=== PATIENT | female | born 1945 | race Caucasian/White ===

== ENCOUNTER 2021-03-20 13:23 | Outpatient (REF) | payer MEDICARE, SELFPAY ==
--- NOTE | ~2021-03-20 | MM_ITS ---
EXAMINATION: MM SCREENING DIGITAL BREAST TOMOSYNTHESIS, BILATERAL CLINICAL INFORMATION: Screening. Asymptomatic. The lifetime risk of breast cancer based on the Tyrer-Cuzick Model is 2.2%. COMPARISON: Mammography: March 15, 2019 and studies dating back to December 04, 2013 TECHNIQUE: Digital breast tomosynthesis is performed in both the craniocaudal and mediolateral oblique views along with computer-aided detection (CAD). Synthesized 2D images are generated from the tomosynthesis. FINDINGS: There are scattered areas of fibroglandular density (ACR BI-RADS breast composition Category b). There are no significant masses, abnormal calcifications, or other abnormalities. MM/MM tomosynthesis screening BI IMPRESSION: There are no significant changes from prior study. ASSESSMENT: BI-RADS 1: Negative RECOMMENDATION: Routine annual mammography screening. This patient's information was entered into a reminder system with a target due date for their next mammogram.
== END 2021-03-20 13:24 | disposition home or self-care (01) ==
LOC: HO.MAMMO 13:23
PROVIDERS: PCP Internal Medicine; Visit Provider Internal Medicine
DX: Z12.31 Encounter for screening mammogram for malignant neoplasm of breast (principal)
CPT/HCPCS: 77063; 77067

== ENCOUNTER 2021-04-17 18:43 | Outpatient (REF) | payer MEDICARE, SELFPAY ==
--- NOTE | ~2021-04-17 | MR_ITS ---
EXAMINATION: MR KNEE WITHOUT CONTRAST, LEFT CLINICAL INFORMATION: Left knee pain. Rule out torn meniscus. COMPARISON: Radiograph dated 10/18/2019 TECHNIQUE: MRI of the knee without contrast was performed using routine sequences on a high-field scanner. FINDINGS: MENISCI: Medial Meniscus: Intact Lateral Meniscus: There is subtle meniscal fraying at the posterior horn of the lateral meniscus and at the free edge of the meniscal body. LIGAMENTS: Cruciate: Intact Collateral: Intact EXTENSOR MECHANISM: Intact ARTICULAR CARTILAGE/BONE: Patellofemoral Compartment: There is moderate nonuniform chondral thinning at the patella and more [id number] nonuniform chondral thinning in the central trochlea. A 1 x 1 cm area of more focal high-grade cartilage loss is present at the inferior aspect of the medial trochlear facet with underlying articular cortical irregularity. Medial Compartment: Mild nonuniform chondral thinning and surface irregularity at the medial femoral condyle posteriorly. Tiny marginal osteophytes. Lateral Compartment: Mild to moderate nonuniform chondral thinning is present at the medial half of the lateral tibial plateau, more pronounced posteriorly. More mild chondral thinning at the lateral femoral condyle. JOINT FLUID AND BURSAE: Trace joint effusion. No Bell's cyst. MR/MR knee LT wo con IMPRESSION: 1. [id number] patellofemoral compartment osteoarthritis. Mild osteophytes in the medial and lateral compartments. 2. Subtle free edge fraying at the lateral meniscus. No discrete meniscal tears. 3. Trace joint effusion.
== END 2021-04-17 18:44 | disposition home or self-care (01) ==
LOC: HO.MRI 18:43
PROVIDERS: PCP Internal Medicine; Visit Provider Internal Medicine
DX: M25.562 Pain in left knee (principal)
CPT/HCPCS: 73721

== ENCOUNTER 2021-04-29 08:59 | Outpatient (REF) | payer MEDICARE, SELFPAY ==
--- NOTE | ~2021-04-29 | XR_ITS ---
EXAMINATION: XR BOTH KNEES AP STANDING XR LEFT KNEE, 2 VIEWS CLINICAL INFORMATION: Pain. COMPARISON: Left knee MRI dated 04/17/2021 and left knee radiographs dated 10/18/2019 TECHNIQUE: Standing AP view of both knees and lateral and sunrise views of the left knee. FINDINGS: Right Knee: Mild medial compartment joint space narrowing. No osseous erosion. No abnormal soft tissue calcification. No fracture or dislocation. Left Knee: Mild medial compartment joint space narrowing. Tiny medial and patellofemoral compartment marginal osteophytes. No osseous erosion. No fracture or dislocation. No significant joint effusion. No abnormal soft tissue calcification. XR/XR knee LT 2V IMPRESSION: Right Knee: Minimal medial compartment arthrosis. Left Knee: Mild medial and patellofemoral compartment arthrosis, unchanged.
--- NOTE | ~2021-04-29 | XR_ITS ---
EXAMINATION: XR BOTH KNEES AP STANDING XR LEFT KNEE, 2 VIEWS CLINICAL INFORMATION: Pain. COMPARISON: Left knee MRI dated 04/17/2021 and left knee radiographs dated 10/18/2019 TECHNIQUE: Standing AP view of both knees and lateral and sunrise views of the left knee. FINDINGS: Right Knee: Mild medial compartment joint space narrowing. No osseous erosion. No abnormal soft tissue calcification. No fracture or dislocation. Left Knee: Mild medial compartment joint space narrowing. Tiny medial and patellofemoral compartment marginal osteophytes. No osseous erosion. No fracture or dislocation. No significant joint effusion. No abnormal soft tissue calcification. XR/XR knee standing BI IMPRESSION: Right Knee: Minimal medial compartment arthrosis. Left Knee: Mild medial and patellofemoral compartment arthrosis, unchanged.
== END 2021-04-29 09:00 | disposition home or self-care (01) ==
LOC: HO.HOSX 08:59
PROVIDERS: Visit Provider Orthopaedic Surgery
DX: Z13.89 Encounter for screening for other disorder (principal)
CPT/HCPCS: 73560; 73565; 99202

== ENCOUNTER 2021-04-29 13:45 | Outpatient (REF) | payer MEDICARE, SELFPAY ==
[2021-04-29 14:43] LABS: MANUAL DIFF FLAG NO
[2021-04-29 14:49] LABS: Basophils Percent Auto 0.5 % (0-2); Eosinophils Absolute Auto 0.2 X10*3/uL (0.0-0.4); Glucose Urine UA NEG (NEG); Hematocrit 41.5 % (37-47); Hemoglobin 13.7 g/dl (12.0-16.0); Imm Gran Abs Auto 0.04 X10*3/uL (0.00-0.03); Imm Gran Pct Auto 0.5 % (0.0-0.4); Leukocyte Esterase Urine 1+ (NEG); Lymphocytes Absolute Auto 2.8 X10*3/uL (1.2-4.9); Mean Corpuscular Hemoglobin 32.4 pg (27.0-33.0); Mean Corpuscular Volume 98.1 fL (80-98); Mean Platelet Volume 9.6 fL (9.4-12.3); Monocytes Absolute Auto 0.6 X10*3/uL (0.1-1.2); Monocytes Percent Auto 8.1 % (2-11); Neutrophils Absolute Auto 3.9 X10*3/uL (2.0-8.3); Neutrophils Percent Auto 51.9 % (45-73); Nitrite Urine NEG (NEG); Platelet Count 305 X10*3/uL (160-400); Red Blood Count 4.23 X10*6/uL (4.20-5.50); Red Cell Distribution Width 13.7 % (11.0-16.0); Specific Gravity - Urine <= 1.005 (1.005-1.025); Urine Blood TRACE (NEG); Urine Ketones NEG (NEG); Urine Protein NEG (NEG-TRACE); White Blood Count 7.4 X10*3/uL (4.8-10.8)
[2021-04-29 14:51] LABS: Appearance Urine CLEAR; Color Urine YELLOW
[2021-04-29 14:59] LABS: RBC Urine 0-2 /HPF (0); Renal Epithelial Cells Urine TRACE /LPF; Squamous Epithelial Cell Urine 1+ /LPF; WBC Urine 0-2 /HPF (0-4)
[2021-04-29 15:13] LABS: Alanine Aminotransferase 15 U/L (0-31); Albumin Level 4.3 g/dL (3.5-5.0); Alkaline Phosphatase 79 U/L (39-117); Anion Gap 12 (12-20); Aspartate Amino Transferase 20 U/L (5-31); Bilirubin Total 0.5 mg/dL (0.0-1.0); Blood Urea Nitrogen 12 mg/dL (9-16); Calcium 9.5 mg/dL (8.4-10.2); Carbon Dioxide 27 mmol/L (22-29); Chloride 104 mmol/L (96-108); Cholesterol 209 mg/dL; Estimated Glomerular Filt Rate > 60; Glucose Fasting 103 mg/dL (60-99); HDL Cholesterol 69 mg/dL; LDL Cholesterol Calculated 126 mg/dl; Potassium 4.4 mmol/L (3.3-5.1); Sodium 139 mmol/L (135-145); Total Protein 7.2 g/dL (6.5-8.0); Triglycerides 74 mg/dL
[2021-04-29 15:34] LABS: Vitamin D 25-OH Total 33.2 ng/mL (>30)
== END 2021-04-29 13:46 | disposition home or self-care (01) ==
LOC: HO.LAB 13:45
PROVIDERS: PCP Internal Medicine; Visit Provider Internal Medicine
DX: M25.562 Pain in left knee (principal); M25.561 Pain in right knee; E78.00 Pure hypercholesterolemia, unspecified; J44.9 Chronic obstructive pulmonary disease, unspecified; F17.200 Nicotine dependence, unspecified, uncomplicated; Z86.010 Personal history of colon polyps
CPT/HCPCS: 36415; 73560; 73565; 80053; 80061; 81001; 82306; 85025; 99202

== ENCOUNTER 2021-05-07 12:48 | Day surgery (SDC) | payer MEDICARE, SELFPAY ==
[2021-03-27 09:42] VITALS: BMI 24.3
--- NOTE | 2021-05-06 09:01 | HO.ANESPROP2 ---
HPI - Anesthesia Eval Consult details Narrative: 75yo F for Colonoscopy PMFSH Past Medical History Medical History Back pain COPD (chronic obstructive pulmonary disease) Smoker Surgical History Surgical History H/O colonoscopy Hx of blepharoplasty Hx of tubal ligation Social History Social History (Updated 03/27/21 @ 09:41 by Anita Sanz RN) Patient Tobacco Use Status: Current everyday Tobacco user Tobacco use type: Cigarette Cigarette Packs Per Day: 2 Cigarettes Per Day: 40.0 Use of substances other than those prescribed or required for medical reasons: No Are you DNR?: No Advance Directives: No Advance Directives Information Provided: Yes Meds Allergies Allergy/AdvReac Type Severity Reaction Status Date / Time soap Allergy Mild itching Verified 04/29/21 13:10 odors Allergy Mild cough Uncoded 04/29/21 13:10 Home Medications Medication Instructions Recorded Confirmed Last Taken Type Aleve 03/27/21 03/27/21 Unknown History ibuprofen 03/27/21 Unknown History Exam Exam Date and Time: May 06, 2021 0901 Height,Weight and Vital Signs: Height 5 ft 1.5 in Weight 59.421 kg Pertinent Lab Results Pertinent Lab Results: Laboratory Tests 04/29/21 04/29/21 14:00 14:00 WBC 7.4 Hgb 13.7 Hct 41.5 Plt Count 305 Sodium 139 Potassium 4.4 Chloride 104 Carbon Dioxide 27 BUN 12 Creatinine 0.75 Assessment and Plan Assessment Anesthesia Assessment: Chart Reviewed
[2021-05-07 13:08] VITALS: BP 156/87; PULSE 99; RESP 18; TEMP 36.8; O2SAT 96
[2021-05-07] MEDS: Lactated Ringers 1,000 ML 100 ML IVCONT (13:13)
[2021-05-07] MEDS: Albuterol Sulfate (0.083%) 2.5 MG/3 ML VIAL.NEB INHALE (13:18)
[2021-05-07 13:21] VITALS: PULSE 101; O2SAT 99
--- NOTE | 2021-05-07 13:52 | P.HPSUR_ITS ---
Pre-Procedural Eval Section A Date of Service: 05/07/21 Section B Chief Complaint: Screening Details of Present Illness: screening Relevant Family History (Specify if Yes): No Relevant Social History: Tobacco Use Present Medications: see Short Stay Collaborative assessment Medical History: No relevant PMH History of Previous Operations: No relevant previous surgery Allergies: Allergies Allergy/AdvReac Type Severity Reaction Status Date / Time soap Allergy Mild itching Verified 04/29/21 13:10 odors Allergy Mild cough Uncoded 04/29/21 13:10 Review of Systems Sugical H&P ROS: Negative: Constitution, Cardiovascular, Respiratory, Cynthia rological, Psychiatric, Hem-Onc, Allergic/Immunologic, Gastrointestinal, Genitourinary, Musculoskeletal, Integumentary, Endocrine and Eyes/Ears/Nose/Throat Exam Surgical H&P Exam: Normal: HEENT, Normal: Heart, Normal: Lungs, Normal: Extremities, Normal: Abdomen, Normal: Skin and Normal: Neurological Plan Diagnosis/Plan: Unchanged I have reviewed the history and physical and performed a pertinent physical examination on my patient. No changes have occurred unless specified.
--- NOTE | 2021-05-07 14:28 | P.BOP_ITS ---
Brief Operative Note Date of Service: 05/07/21 Pre-op diagnosis: screening Post-op diagnosis: same (colon polyp) Procedure: colonoscopy Surgeon: Ivan Bowens Anesthesia: MAC Was an Service Trainer used for this Procedure?: No Estimated blood loss (mL): 2 Pathology: other (polyp x 1) Condition: stable Disposition: PACU
[2021-05-07 14:29] VITALS: BP 108/41; PULSE 88; RESP 16; TEMP 36.2; O2SAT 97
--- NOTE | 2021-05-07 14:42 | OP_ITS ---
SURGEON: Ivan Bowens MD INDICATIONS: Colon cancer screening and prior history of adenomatous colon polyps. PREOPERATIVE DIAGNOSIS: POSTOPERATIVE DIAGNOSIS: PROCEDURE PERFORMED: Colonoscopy to the terminal ileum with biopsy. ESTIMATED BLOOD LOSS: COMPLICATIONS: ANESTHESIA: ASSISTANTS: SPECIMENS: MEDICATIONS: Monitored anesthesia care. DESCRIPTION OF PROCEDURE: History and physical performed. The risks and benefits of the procedure were explained to the patient. Informed consent was obtained. The patient was placed in left lateral decubitus position. A digital rectal exam was performed and was found to be normal. The Olympus pediatric video colonoscope was introduced into the rectum and advanced to the cecum without difficulty. The cecum was identified by transillumination, palpation, and identification of ileocecal valve. Examination was performed and the scope was removed. She tolerated the procedure well and was taken to recovery area in stable condition. FINDINGS: The terminal ileum was examined and appeared normal. The visualized colonic mucosa was normal. The quality of the prep was good. A single polyp measuring less than 5 mm was removed from the colon at 20 cm. No other polyps were identified. Retroflexed examination showed internal hemorrhoids. There was mild scattered diverticulosis mainly present in the right colon. IMPRESSION: Diverticulosis, colon polyp. RECOMMENDATION: Follow up the biopsy results. MD DORIAN Sosa/ABHINAVL / [id number]
[2021-05-07 14:45] VITALS: BP 113/54; PULSE 85; RESP 17; TEMP 36.4; O2SAT 99
== END 2021-05-07 15:18 | disposition home or self-care (01) ==
PROVIDERS: PCP Internal Medicine; Visit Provider Internal Medicine Gastroenterology
PROC: 0DJD8ZZ Inspection of Lower Intestinal Tract, Via Natural or Artificial Opening Endoscopic (ICD-10-PCS; CPT 45378; principal; 2021-05-07 13:50)
DX: Z12.11 Encounter for screening for malignant neoplasm of colon (principal); Z86.010 Personal history of colon polyps; K63.5 Polyp of colon; K57.30 Diverticulosis of large intestine without perforation or abscess without bleeding; K64.8 Other hemorrhoids; J44.9 Chronic obstructive pulmonary disease, unspecified; M54.9 Dorsalgia, unspecified; F17.210 Nicotine dependence, cigarettes, uncomplicated; Z79.1 Long term (current) use of non-steroidal anti-inflammatories (NSAID)
CPT/HCPCS: 45380; 88305; 94640

== ENCOUNTER 2022-06-19 14:27 | Outpatient (REF) | payer MEDICARE, SELFPAY ==
--- NOTE | ~2022-06-19 | MM_ITS ---
EXAMINATION: MM SCREENING DIGITAL BREAST TOMOSYNTHESIS, BILATERAL CLINICAL INFORMATION: Screening. Asymptomatic. The lifetime risk of breast cancer based on the Tyrer-Cuzick Model is 2%. COMPARISON: Mammography: 03/20/2021, 03/15/2019, 02/28/2018 TECHNIQUE: Digital breast tomosynthesis is performed in both the craniocaudal and mediolateral oblique views along with computer-aided detection (CAD). Synthesized 2D images are generated from the tomosynthesis. Additional bilateral MLO views are provided. FINDINGS: There are scattered areas of fibroglandular density (ACR BI-RADS breast composition Category b). There are no significant masses, abnormal calcifications, or other abnormalities. Parenchymal pattern is similar to prior studies. There is no developing density or architectural abnormality. The axilla and skin contours are unremarkable. No significant changes. MM/MM tomosynthesis screening BI IMPRESSION: No mammographic evidence of malignancy. ASSESSMENT: BI-RADS 1: Negative RECOMMENDATION: Routine annual mammography screening. This patient's information was entered into a reminder system with a target due date for their next mammogram.
== END 2022-06-19 14:28 | disposition home or self-care (01) ==
LOC: HO.MAMMO 14:27
PROVIDERS: Visit Provider Internal Medicine
DX: Z12.31 Encounter for screening mammogram for malignant neoplasm of breast (principal)
CPT/HCPCS: 77063; 77067

== ENCOUNTER 2023-07-15 13:21 | Outpatient (REF) | payer MEDICARE, SELFPAY ==
--- NOTE | ~2023-07-15 | MM_ITS ---
EXAMINATION: MM SCREENING DIGITAL BREAST TOMOSYNTHESIS, BILATERAL CLINICAL INFORMATION: Screening. Asymptomatic. COMPARISON: Mammography: This study is compared with prior exams dating back to 2018. TECHNIQUE: Digital breast tomosynthesis is performed in both the craniocaudal and mediolateral oblique views along with computer-aided detection (CAD). Synthesized 2D images are generated from the tomosynthesis. FINDINGS: There are scattered areas of fibroglandular density (ACR BI-RADS breast composition Category b). There is an asymmetry of the lower inner quadrant of the left breast. This is superficially located and may represent a sebaceous cyst within the scanner multiple. Further mammographic and targeted sonographic evaluation of advised. When the patient returns for the additional imaging all moles in the medial half the left breast should be marked. In the right breast, there are no significant masses, abnormal calcifications, or other abnormalities. MM/MM tomosynthesis screening BI IMPRESSION: Asymmetry of the left breast warrants additional mammographic and targeted sonographic imaging. The patient returns for their diagnostic imaging, all moles on the medial side of the left breast should be marked for all diagnostic images performed. The finding in question may be within the skin since it is superficial. No mammographic signs of malignancy right breast. Benign calcifications right breast. ASSESSMENT: BI-RADS BI-RADS 0 - Incomplete: Needs additional Imaging. RECOMMENDATION: 1. Additional views of the left breast 2. Targeted ultrasound if warranted after review of the additional views. 3. Radiology department staff will contact the patient for additional imaging. Additional Imaging required This examination should not preclude the clinical evaluation of a suspicious palpable abnormality. This patient's information was entered into a reminder system with a target due date for their next mammogram.
--- NOTE | ~2023-07-15 | MM_ITS ---
EXAMINATION: BONE DENSITOMETRY CLINICAL INDICATION: Postmenopausal. COMPARISON: Baseline BD dated 03/30/2008. TECHNIQUE: Using a [employer] DXA System (software version: 13.1) manufactured by [employer], dual-energy x-ray absorptiometry was performed of the lumbar spine and left hip. The images are of good technical quality. Summary results are attached. FINDINGS: LEFT FEMUR, NECK: Current: BMD 0.742 g/cm2, Z-score 0.0, T-score -2.1, osteopenia. Baseline: BMD 0.912 g/cm2. LEFT FEMUR, TOTAL: Current: BMD 0.822 g/cm2, Z-score 0.5, T-score -1.5, osteopenia, 19.8% decrease from baseline (<5% change is not significant). Baseline: BMD 1.025 g/cm2. AP SPINE L1-L4: Current: BMD 1.454 g/cm2, Z-score 4.3, T-score 2.3, normal, 4.2% increase from baseline (<5% change is not significant). Baseline: BMD 1.395 g/cm2. IDENTIFIED RISK FACTORS: Height loss, current smoker, menopause. HISTORY OF FRACTURE: None listed. MEDICATIONS: None listed. MM/XR DEXA axial skeleton IMPRESSION: 1. DIAGNOSIS: Osteopenia based on the lowest T-score value of -2.1 in the femoral neck applying World Health Organization criteria. 2. 10-YEAR FRACTURE RISK PREDICTION, FRAX: Major osteoporotic fracture (clinical spine, forearm, hip or shoulder) 15.6%. Hip fracture 6.6%. 3. Treatment Recommendations: NOF guidelines recommend consideration for treatment in postmenopausal women and men age 50 and older presenting with the following: -A hip or vertebral (clinical or morphometric) fracture. -T-score less than or equal to -2.5 at the femoral neck or spine after appropriate evaluation to exclude secondary causes. -Low bone mass at the hip or spine and a 10-year fracture probability by FRAX of greater than or equal to 3% for hip fracture or greater than or equal to 20% for major osteoporotic fracture based on the [place] adapted WHO algorithm. 4. Other Recommendations: All treatment decisions require clinical judgment and consideration of individual patient factors, including patient preferences, comorbidities, previous drug use, risk factors not captured in the FRAX model (e.g. frailty, falls, vitamin D deficiency, increased bone turnover, interval significant decline in bone density) and possible under or overestimation of fracture risk by FRAX. Additional medical evaluation for secondary cause of low bone mineral density may be appropriate. FUTURE SCAN RECOMMENDATION: People with diagnosed cases of osteoporosis or at high risk for fracture should have regular bone mineral density tests. For patients eligible for Medicare, routine testing is allowed once every 2 years. The testing frequency can be increased to one year for patients who have rapidly progressing disease, those who are receiving or discontinuing medical therapy to restore bone mass, or have additional risk factors.
== END 2023-07-15 13:22 | disposition home or self-care (01) ==
LOC: HO.MAMMO 13:21
PROVIDERS: PCP Internal Medicine; Visit Provider Internal Medicine
DX: Z12.31 Encounter for screening mammogram for malignant neoplasm of breast (principal); Z13.820 Encounter for screening for osteoporosis; Z78.0 Asymptomatic menopausal state
CPT/HCPCS: 77063; 77067; 77080

== ENCOUNTER → 2023-07-15 13:45 | Outpatient (BNV) | payer MEDICARE, SELFPAY | PROVIDERS: PCP Internal Medicine; Visit Provider Radiology Diagnostic Radiology | DX: Z12.31 Encounter for screening mammogram for malignant neoplasm of breast (principal) | CPT/HCPCS: 77063; 77067 ==

== ENCOUNTER → 2023-09-29 14:30 | Outpatient (BNV) | payer MEDICARE, SELFPAY | PROVIDERS: PCP Internal Medicine; Visit Provider Radiology Diagnostic Radiology | DX: R92.1 Mammographic calcification found on diagnostic imaging of breast (principal) | CPT/HCPCS: 77061; 77065 ==

== ENCOUNTER 2023-09-29 14:31 | Outpatient (REF) | payer MEDICARE, SELFPAY ==
--- NOTE | ~2023-09-29 | MM_ITS ---
EXAMINATION: MM DIAGNOSTIC DIGITAL BREAST TOMOSYNTHESIS, LEFT CLINICAL INFORMATION: Follow-up asymmetry lower inner quadrant left breast superficially located, possibly a sebaceous cyst. COMPARISON: Mammography: 06/19/2022, 03/20/2021, and dating back to 2015. TECHNIQUE: Digital breast tomosynthesis is performed. 2D images are generated from the tomosynthesis. The following views are obtained: Left full-field 3-D cc view, and full-field left 3-D MLO view. Skin markers were utilized by the technologist. FINDINGS: There are scattered areas of fibroglandular density (ACR BI-RADS breast composition Category b). A skin marker has been placed on the focal asymmetry lower inner quadrant left breast, which is indeed a probable sebaceous cyst in the intramammary fold region. This demonstrates a small black dot within the middle, consistent with a blocked sebaceous gland. This finding is benign and dermal in origin. There are vascular calcifications present. There is otherwise no suspicious mass, grouped calcifications, or architectural distortion in the left breast. MM/MM tomosynthesis added views L IMPRESSION: Benign findings left breast related to sebaceous cyst in the medial inframammary fold region. Recommend clinical management. Otherwise, recommend the patient return to routine annual screening. ASSESSMENT: BI-RADS BI-RADS 2 - Benign Findings RECOMMENDATION: 1. Patient should be managed based on the clinical impression. 2. Otherwise, routine annual screening mammography. Results were provided to the patient at time of visit by the technologist. This patient's information was entered into a reminder system with a target due date for their next mammogram.
== END 2023-09-29 14:32 | disposition home or self-care (01) ==
LOC: HO.MAMMO 14:31
PROVIDERS: PCP Internal Medicine; Visit Provider Internal Medicine
DX: N64.89 Other specified disorders of breast (principal)
CPT/HCPCS: 77061; 77065

== ENCOUNTER 2025-03-29 14:36 | Outpatient (AMB) | payer MEDICARE, SELFPAY ==
--- NOTE | 2025-03-29 14:35 | MHC.PC.OV ---
Vital Signs 03/29/25 14:40 Height 5 ft 2 in Weight 114 lb BMI 20.8 BP 148/80 H Blood Pressure Location Rt brachial Position Sitting Respiration 17 Pulse 110 H Pulse Source Pulse Oximeter Temp 97.9 F Temp Source Temporal Artery Scan Pulse Oximetry (%) 97 Oxygen Delivery Method Room Air Intake Visit Reasons: Routine Search Engineer Required: No Accompanied by: Self / Same As Patient Allergies soap Allergy (Mild, Verified 03/29/25 14:35) itching odors Allergy (Mild, Uncoded 04/29/21 13:10) cough Medication List - Last Reconciled 03/29/25 by Caty Espinoza MD [Aleve ] multivitamin 1 tab PO DAILY Tobacco use date assessed: 03/29/25 HPI HPI Comments History of Present Illness Details 79 year old female with a past medical history of COPD, tobacco use, lumbar stenosis, h/o colon polyps presenting for follow up. Last saw pcp in 2022 COPD-stable without medication MSK-History of spinal stenosis. Has had prior interventions including surgeries. Doing okay Mammo 09/2023 DXA 2022 Colonoscopy 04/2021 ROS CONSTITUTIONAL: Denies weight loss, fever and chills. HEENT: Denies changes in vision and hearing. RESPIRATORY: Denies SOB and cough. CV: Denies palpitations and CP GI: Denies abdominal pain, nausea, vomiting and diarrhea. : Denies dysuria and urinary frequency. MSK: Denies new myalgia and joint pain. SKIN: Denies rash and pruritus. NEUROLOGICAL: Denies headache PSYCHIATRIC: Denies recent changes in mood. PHYSICAL EXAM: GENERAL: Alert and oriented x 3. NAD EYES: EOMI. Anicteric. HENT: Moist mucous membranes. No scleral icterus. No cervical lymphadenopathy. LUNGS: Clear to auscultation bilaterally. CARDIOVASCULAR: Regular rate and rhythm. No murmur. No JVD. ABDOMEN: Soft, non-tender +bs EXTREMITIES: No edema. Non-tender. SKIN: No rashes or lesions. Warm. NEUROLOGIC: No focal neurological deficits. CN II-XII grossly intact PSYCHIATRIC: Cooperative. Appropriate mood and affect [facility] Medical History (Updated 03/29/25 @ 15:34 by Caty Espinoza MD) Smoker Back pain COPD (chronic obstructive pulmonary disease) Surgical History H/O colonoscopy Hx of blepharoplasty Hx of tubal ligation Social History (Updated 03/27/21 @ 09:41 by Anita Sanz RN) Patient Tobacco Use Status: Current everyday Tobacco user Tobacco use type: Cigarette Cigarette Packs Per Day: 2 Cigarettes Per Day: 40.0 e-Cigarette/Vaping Use: Never Used Questionnaire PHQ-9 Over the last 2 weeks, how often have you been bothered by any of the following problems? 1. Little interest or pleasure in doing things: not at all 2. Feeling down, depressed, or hopeless: not at all 3. Trouble falling or staying asleep, or sleeping too much: not at all 4. Feeling tired or having little energy: not at all 5. Poor appetite or overeating: not at all 6. Feeling bad about yourself - or that you are a failure or have let yourself or your family down: not at all 7. Trouble concentrating on things, such as reading the newspaper or watching television: not at all 8. Moving or speaking so slowly that other people could have noticed. Or the opposite - being so fidgety or restless that you have been moving around a lot more than usual: not at all 9. Thoughts that you would be better off or of hurting yourself in some way: not at all Total score: 0 Depression Screening Interpretation: Negative Depression Screening Done: Yes 06300 - PHQ-9 Billing: Yes Source: Developed by Drs. Tom Mead, Valery Garcia, Angel Luis Weiner and colleagues, with an educational les from [employer]. Thrive Questionnaire Date Thrive assessed: 03/29/25 I am a: Patient What is your living situation today?: I have a steady place to live Within the past 12 months, did the food you bought not last and you didn't have the money to get more?: Never true Within the past 12 months, did you worry whether your food would run out before you got money to buy more?: Never true Do you have trouble paying for medicines?: No Do you have trouble getting transportation to medical appointments?: No Do you have trouble paying your heating and electricity bill?: No Do you have trouble taking care of your child, family member or friend?: No Do you have trouble with day-to-day activities such as bathing, preparing meals, shopping, managing finances, etc.?: No Are you currently unemployed and looking for a job?: No Are you interested in more education?: No THRIVE Score: 0 AUDIT C Alcohol Use Questionnaire (AUDIT-C) 1. How often do you have a drink containing alcohol?: 4 or more times a week 2. How many drinks containing alcohol do you have on a typical day when you are drinking?: 1 or 2 Total Score: 4 TOMI-7 AMB Questionnaire TOMI-7 Date TOMI - 7 assessed: 03/29/25 Feeling nervous, anxious, or on edge: 0 = Not at all Not being able to stop or control worryin = Not at all Worrying too much about different things: 0 = Not at all Trouble relaxin = Not at all Being so restless that it is hard to sit still: 0 = Not at all Becoming easily annoyed or irritable: 0 = Not at all Feeling afraid as if something awful might happen: 0 = Not at all Total TOMI-7 score (0-4 normal; 5-9 mild; 10-14 moderate; 15-21 severe): 0 Source: Developed by Drs. Tom Mead, Valery Garcia, Angel Luis Weiner and colleagues, with an educational les from [employer]. Physical exam (Primary Care) Vital Signs: Last Vital Signs Temp 97.9 F 03/29/25 14:40 Pulse 110 H 03/29/25 14:40 Resp 17 03/29/25 14:40 BP 148/80 H 03/29/25 14:40 Pulse Ox 97 03/29/25 14:40 Oxygen Delivery Method Room Air 03/29/25 14:40 BMI result Body Mass Index 20.8 Tobacco/Smoking Status: Tobacco use Status Tobacco use date assessed 03/29/25 03/29/25 14:44 Patient Tobacco Use Status Current everyday Tobacco 03/29/25 14:44 Tobacco use type Cigarette 03/29/25 14:44 e-Cigarette/Vaping Use Never Used 03/29/25 14:44 PHQ-9: PHQ-9 Score PHQ-9: Total score 0 03/29/25 15:08 Depression Screening Interpretation: Negative Thrive Assessment: Date of Thrive Assessment Date Thrive assessed 03/29/25 03/29/25 15:08 Coding Level of Care Code New Pt Level 3 (20905) Complex EM visit Add On G2211 Diagnoses Osteopenia, unspecified location M85.80 Osteopenia location: unspecified Spinal stenosis of lumbar region, unspecified whether neurogenic claudication present M48.061 Neurogenic claudication status: unspecified Chronic obstructive pulmonary disease, unspecified COPD type J44.9 COPD type: unspecified COPD Additional Codes PHQ-9 - 09868 - PHQ-9 Billing: Yes ([id number]) Assessment & Plan Assessment & Plan (1) Osteopenia: Code(s): M85.80 - Other specified disorders of bone density and structure, unspecified site Category: Medical Qualifiers: Osteopenia location: unspecified Qualified Code(s): M85.80 - Other specified disorders of bone density and structure, unspecified site (2) Lumbar stenosis: Code(s): M48.061 - Spinal stenosis, lumbar region without neurogenic claudication Category: Medical Qualifiers: Neurogenic claudication status: unspecified Qualified Code(s): M48.061 - Spinal stenosis, lumbar region without neurogenic claudication (3) COPD (chronic obstructive pulmonary disease): Code(s): J44.9 - Chronic obstructive pulmonary disease, unspecified Category: Medical Qualifiers: COPD type: unspecified COPD Qualified Code(s): J44.9 - Chronic obstructive pulmonary disease, unspecified Plan 79 year old to establish care past medical, surgical, social reviewed Mammo due and ordered Labs ordered Back pain is stable COPD-not requiring medications Orders: Orders Comprehensive Met. Panel Today M48.061 - Spinal stenosis, lumbar region without neurogenic claudication, Z13.0 - Encounter for screening for diseases of the blood and blood-forming organs and certain disorders involving the immune mechanism, Z13.220 - Encounter for screening for lipoid disorders, Z13.228 - Encounter for screening for other metabolic disorders LDL Cholesterol Direct Today M48.061 - Spinal stenosis, lumbar region without neurogenic claudication, Z13.0 - Encounter for screening for diseases of the blood and blood-forming organs and certain disorders involving the immune mechanism, Z13.220 - Encounter for screening for lipoid disorders, Z13.228 - Encounter for screening for other metabolic disorders MM tomosynthesis screening BI Today Z12.31 - Encounter for screening mammogram for malignant neoplasm of breast Complete Blood Count Auto Diff Today M48.061 - Spinal stenosis, lumbar region without neurogenic claudication, Z13.0 - Encounter for screening for diseases of the blood and blood-forming organs and certain disorders involving the immune mechanism, Z13.220 - Encounter for screening for lipoid disorders, Z13.228 - Encounter for screening for other metabolic disorders XR DEXA axial skeleton Today M85.80 - Other specified disorders of bone density and structure, unspecified site
[2025-03-29 14:40] VITALS: BP 148/80; PULSE 110; RESP 17; TEMP 36.6; O2SAT 97; BMI 20.8
--- OUTSIDE RECORDS SUMMARY | 2025-03-29 15:22 | XMS_ITS | Patient Health Record ---
Author Organization [facility] Address [address] [place] [id number] Care Team Providers Care Booth Supervisor Name Role Phone Lucía (RETIRED) Viktor MATSON Primary Care Provide Ivan Cristina Jr Unavailable Allergies No Known Allergies Reason For Referral No Information Medications Medication SIG (Take, Route, Frequency, Duration) Notes Start Date End Date Status MiraLax (colon prep) 8.3 ounce ((238) grams mixed with Gatorade or Crystal Light orally begin at 5:00 p.m. 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 local intermodal truck driver (current) use of non-steroidal anti-inflammato cl (NSAID) (Z79.1) Active confirmed Plan Of Treatment Future Test Test Name Order Date COLONOSCOPY 05/31/2014 COLONOSCOPY 03/13/2021 Insurance Providers Payer Name Payer Address Payer Phone Subscriber Number Group Number Insured Name Patient Relationship to Insured Coverage Start Date Coverage End Date MEDICARE OF [place] [address] [place] [address] [phone] [id number] DAYNE LAURA Self - patient is the insured MEDEX ATTN CLAIMS [address] [place] [address] [id number] DAYNE LAURA Self - patient is the insured Medical (General) History Medical History History ICD Code Back pain COPD Colonoscopy 08/01/14, tubular adenoma, f rama-year followup recommended Surgical History Surgery Date(Month/Year) tubal ligation eye lids
--- OUTSIDE RECORDS SUMMARY | 2025-03-29 15:22 | XMS_ITS | Clinical Summary ---
Author Organization [facility] Address [address] [place] [address] Care Team Providers Care Car Spotter Name Role Phone Viktor Castrejon MD Primary Care Provider [phone] Social History Tobacco Use Types Packs/Day Years Used Date Smoking Tobacco: Never Assessed Comments Unknown Sex and Gender Information Value Date Recorded Sex Assigned at Not on file Legal Sex Female 10:01 PM EST Gender Identity Not on file Sexual Orientation Not on file Plan of Treatment Health Maintenance Due Date Last Done Comments DTaP,Tdap,and Td Vaccines (1 - Tdap) 1966 Pneumococcal Vaccine: 50+ Ye ars (1 of 1 - PCV) 1997 Zoster Vaccines (1 of 2) 1997 RSV Immunization Adult Patie nts (1 - 1-dose 75+ series) 2022 COVID-19 Vaccine ( - 2023-2 5 season) 2024 Influenza Vaccine (#1) 2025 HIB Vaccines Aged Out No longer eligi ble based on patient's age to complete this topic HPV Vaccines Aged Out No longer eligi ble based on patient's age to complete this topic Hepatitis A Vaccines Aged Out No long er eligible based on patient's age to complete this topic Hepatitis B Vaccines Aged Out No long er eligible based on patient's age to complete this topic IPV Vaccines Aged Out No longer eligi ble based on patient's age to complete this topic MMR Vaccines Aged Out No longer eligi ble based on patient's age to complete this topic Meningococcal ACWY Vaccine Aged Out N o longer eligible based on patient's age to complete this topic Meningococcal B Vaccine Aged Out No l onger eligible based on patient's age to complete this topic RSV Immunization Patients Un marcello 20 months Aged Out No longer eligible b ased on patient's age to complete this topic Varicella Vaccines Aged Out No longer eligible based on patient's age to complete this topic Care Teams Car Spotter Relationship Specialty Start Date End Date Viktor Castrejon MD [address] [place] [address] Dr Abbey [place] PCP - General Business Information Consultant 10/10/19
== END 2025-03-29 16:27 | disposition home or self-care (01) ==
LOC: HO.HMCHD 14:37
PROVIDERS: PCP Internal Medicine; Visit Provider Internal Medicine
DX: M85.80 Other specified disorders of bone density and structure, unspecified site (principal); M48.061 Spinal stenosis, lumbar region without neurogenic claudication; J44.9 Chronic obstructive pulmonary disease, unspecified

== ENCOUNTER 2025-03-29 14:36 | Outpatient (REF) | payer MEDICARE, SELFPAY ==
[2025-03-29 15:20] LABS: MANUAL DIFF FLAG NO
[2025-03-29 15:56] LABS: Hematocrit 41.3 % (37.0-47.0); Hemoglobin 14.2 g/dl (12.0-16.0); Imm Gran Abs Auto 0.03 X10*3/uL (0.00-0.03); Imm Gran Pct Auto 0.4 % (0.0-0.4); Lymphocytes Absolute Auto 2.6 X10*3/uL (1.2-4.9); Mean Corpuscular HGB Conc 34.4 g/dl (31.0-35.0); Mean Corpuscular Hemoglobin 34.0 pg (27.0-33.0); Mean Corpuscular Volume 98.8 fL (80.0-98.0); NRBC Abs Auto 0.000 X10*3/uL (0.0-0.012); NRBC Pct Auto 0.0 /100WBC (0.0-0.2); Platelet Count 281 X10*3/uL (160-400); Red Blood Count 4.18 X10*6/uL (4.20-5.50); White Blood Count 7.4 X10*3/uL (4.8-10.8)
[2025-03-29 16:31] LABS: Alanine Aminotransferase 15 U/L (0-31); Albumin Level 4.2 g/dL (3.5-5.0); Alkaline Phosphatase 110 U/L (39-117); Anion Gap 12 (12-20); Aspartate Amino Transferase 23 U/L (5-31); Blood Urea Nitrogen 14 mg/dL (9-16); Calcium 9.8 mg/dL (8.4-10.2); Carbon Dioxide 27 mmol/L (22-29); Chloride 104 mmol/L (96-108); Estimated Glomerular Filt Rate > 60; Potassium 4.2 mmol/L (3.3-5.1); Sodium 139 mmol/L (135-145); Total Protein 7.2 g/dL (6.5-8.0)
== END 2025-03-29 14:37 | disposition home or self-care (01) ==
LOC: HO.LAB 14:36
PROVIDERS: PCP Internal Medicine; Visit Provider Internal Medicine
DX: Z76.89 Persons encountering health services in other specified circumstances (principal); M85.80 Other specified disorders of bone density and structure, unspecified site; M48.061 Spinal stenosis, lumbar region without neurogenic claudication; J44.9 Chronic obstructive pulmonary disease, unspecified; Z13.31 Encounter for screening for depression; Z13.39 Encounter for screening examination for other mental health and behavioral disorders; Z13.0 Encounter for screening for diseases of the blood and blood-forming organs and certain disorders involving the immune mechanism; Z13.220 Encounter for screening for lipoid disorders; Z13.228 Encounter for screening for other metabolic disorders
CPT/HCPCS: 36415; 80053; 83721; 85025; 96127; 99202

== ENCOUNTER 2025-07-18 13:57 | Outpatient (REF) | payer MEDICARE, SELFPAY ==
--- OUTSIDE RECORDS SUMMARY | 2025-07-18 17:09 | XMS_ITS | Patient Health Record ---
Author Organization [facility] Address [address] [place] [address] Care Team Providers Care Sewer Pipe Layer Name Role Phone Lucía (RETIRED) Viktor MATSON Primary Care Provide Ivan Cristina Jr Unavailable Allergies No Known Allergies Reason For Referral No Information Medications Medication SIG (Take, Route, Frequency, Duration) Notes Start Date End Date Status MiraLax (colon prep) 8.3 ounce ((238) grams mixed with Gatorade or Crystal Light orally begin at 5:00 p.m. 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 anti-inflammat ory drug ([id number] 03) detention (current) use of non-steroidal anti-inflammat ories (NSAID) (Z79.1) Active confirmed Plan Of Treatment Future Test Test Name Order Date COLONOSCOPY 05/31/2014 COLONOSCOPY 03/13/2021 Insurance Providers Payer Name Payer Address Payer Phone Subscriber Number Group Number Insured Name Patient Relationship to Insured Coverage Start Date Coverage End Date [place]ARE [place] [address] [place] [address] [id number] DAYNE LAURA Self - patient is the insured MED[employer] ATTN CLAIMS [address] [place] [address] [id number] DAYNE LAURA Self - patient is the insured Medical (General) History Medical History History ICD Code Back pain COPD Colonoscopy 08/01/14, tubular adenoma, f rama-year followup recommended Surgical History Surgery Date(Month/Year) tubal ligation eye lids
--- OUTSIDE RECORDS SUMMARY | 2025-07-18 17:09 | XMS_ITS | Clinical Summary ---
Author Organization [facility] Address [address] [place] [address] Care Team Providers Care Detective Automobile Section Name Role Phone Viktor Castrejon MD Primary Care Provider [phone] Social History Tobacco Use Types Packs/Day Years [...] nts (1 - 1-dose 75+ series) 2022 Depression Screening 09/13/2024 COVID-19 Vaccine (2023-2 5 season) 2025 Influenza Vaccine (#1) 2025 HIB Vaccines Aged [...] age to complete this topic Care Teams Detective Automobile Section Relationship Specialty Start Date End Date Viktor Castrejon MD [address] [place] [address] Dr Abbey [place] PCP - General Manager Shell 10/10/19
== END 2025-07-18 13:58 | disposition home or self-care (01) ==
LOC: HO.MAMMO 13:57
PROVIDERS: PCP Internal Medicine; Visit Provider Internal Medicine
DX: Z12.31 Encounter for screening mammogram for malignant neoplasm of breast (principal)
CPT/HCPCS: 77063; 77067

== ENCOUNTER → 2025-07-18 13:59 | Outpatient (BNV) | payer MEDICARE, SELFPAY | PROVIDERS: PCP Internal Medicine; Visit Provider Internal Medicine | DX: Z12.31 Encounter for screening mammogram for malignant neoplasm of breast (principal) | CPT/HCPCS: 77063; 77067 ==

== ENCOUNTER 2025-07-27 15:03 | Outpatient (REF) | payer MEDICARE, SELFPAY ==
--- NOTE | ~2025-07-27 | MM_ITS ---
EXAMINATION: DUAL X-RAY ABSORPTIOMETRY (DXA) FOR BONE MINERAL DENSITY. CLINICAL INDICATION: postmenopausal. Follow-up. Tobacco user TECHNIQUE: An axial (e.g., hips, spine) and/or appendicular (e.g., radius) exam was performed, as appropriate, using [employer] densitometer. Images are obtained for bone mineral density measurement and are not obtained for diagnostic purposes. [id number] COMPARISON: Bone density 07/15/2023. FINDINGS: Scan quality: Good. LUMBAR SPINE (L1-L4): There is mild scoliosis. BMD (in g/cm*2): 1.498. T-score: 0.7. Z-score: 4.8. Change from previous 3.0%. LEFT FEMORAL NECK: BMD (in g/cm*2): 0.773. T-score: -1.9. Z-score: 0.4. LEFT TOTAL HIP: BMD (in g/cm*2): 0.800. T-score: -1.7. Z-score: 0.5. FRAX 10-YEAR PROBABILITY OF FRACTURE: 10-year fracture risk is performed using the [employer] FRAX calculator based on patient-reported risk factors. Major osteoporotic fracture: 14.6%. Hip fracture: 6.0%. MM/XR DEXA axial skeleton IMPRESSION: Mild osteopenia based on T score of - 1.7 in total left femur. However the T score in total left femur has slightly increased from -1.5 to -1.7 and improved in lumbar spine from 2.3 from 07/15/23 to 2.7 on present exam. World Health Organization criteria for BMD impression classify patients as: - Normal (T-score at or above -1.0). - Osteopenia (T-score between -1.0 and -2.5). - Osteoporosis (T-score at or below -2.5). Per the Bone Health and Osteoporosis Foundation the FRAX tool is most useful in patients with low femoral neck bone mineral density (osteopenia). FRAX is calculated per request. RECOMMENDATIONS: 1. All patients should optimize their calcium and vitamin D intake. 2. Consider FDA-approved medical therapies in postmenopausal women and men aged 50 years and older, based on the following: - A hip or vertebral (clinical or morphometric) fracture. - T-score less than or equal to -2.5 at the femoral neck or spine after appropriate evaluation to exclude secondary causes. - Low bone density (T-score between -1.0 and -2.5 at the femoral neck or spine) and a 10-year probability of a hip fracture greater than or equal to 3% or a 10-year probability of a major osteoporosis-related fracture greater than or equal to 20% based on FRAX calculation. - Clinician judgment and/or patient preferences may indicate treatment for people with 10-year fracture probabilities above or below these levels. - Further guidance on treatment can be found at the National Osteoporosis Foundation's website bonesource.org. 3. Patients with diagnosis of osteoporosis or at high risk for fracture should have regular bone mineral density tests. For patients eligible for Medicare, routine testing is allowed once every 2 years. The testing frequency can be increased to one year for patients who have rapidly progressing disease, those who are receiving or discontinuing medical therapy to restore bone mass or have additional risk factors Electronically signed by: Ivan Galo MD 07/27/2025 03:44 PM KELSEA MILLER
--- OUTSIDE RECORDS SUMMARY | 2025-07-27 23:08 | XMS_ITS | Clinical Summary ---
Author Organization [facility] Address [address] [place] [address] Care Team Providers Care Archives Director Name Role Phone Viktor Castrejon MD Primary Care Provider [phone] Social History Tobacco Use Types Packs/Day Years [...] series) 2022 Depression Screening 09/13/2024 COVID-19 Vaccine ( - 2024-2 6 season) 2025 Influenza Vaccine (#1) 2025 HIB [...] age to complete this topic Care Teams Archives Director Relationship Specialty Start Date End Date Viktor Castrejon MD [address] [place] [address] Dr Abbey [place] PCP - General Permit Coordinator 10/10/19
== END 2025-07-27 15:04 | disposition home or self-care (01) ==
LOC: HO.MAMMO 15:03
PROVIDERS: PCP Internal Medicine; Visit Provider Internal Medicine
DX: Z13.820 Encounter for screening for osteoporosis (principal); M85.852 Other specified disorders of bone density and structure, left thigh; E28.39 Other primary ovarian failure
CPT/HCPCS: 77080

== ENCOUNTER → 2025-07-27 15:30 | Outpatient (BNV) | payer MEDICARE, SELFPAY | PROVIDERS: PCP Internal Medicine; Visit Provider Radiology Diagnostic Radiology | DX: E28.39 Other primary ovarian failure (principal) | CPT/HCPCS: 77080 ==